=== PATIENT | female | born 1965 | race Caucasian/White ===

== ENCOUNTER 2017-04-08 06:35 | Day surgery (SDC) | payer BC, OTHER ==
[2017-04-08] MEDS ORDERED: Sodium Chloride 0.9% 10 ML Syringe FLUSH PRN (06:45)
[2017-04-08] MEDS ORDERED: Lactated Ringers 1,000 ML IV SCH (06:45)
[2017-04-08] MEDS ORDERED: fentaNYL 100 MCG/2 ML SDV IV ONE (07:50)
[2017-04-08] MEDS ORDERED: Propofol 200 MG/20 ML SDV IV ONE (07:50)
[2017-04-08] MEDS ORDERED: Ondansetron 4 MG/2 ML SDV IVPUSH ONE (07:50)
[2017-04-08] MEDS ORDERED: Midazolam 1 MG/ML 2 ML SDV IV ONE (07:50)
[2017-04-08] MEDS ORDERED: Simethicone Drops 40 MG/0.6 ML 30 ML Bottle ONE (08:06)
--- NOTE | 2017-04-08 08:23 | PCM.OPNOTE ---
- General Post-Op/Procedure Note Date of Surgery/Procedure: 04/08/17 Operative Procedure(s): c scope with bx Findings: rectal polyp Pre Op Diagnosis: screening Post-Op Diagnosis: rectal polyp Anesthesia Technique: MAC Primary Surgeon: Mukund Cohen Anesthesia Provider: Conner Andrew Pathology: rectal polyp Complications: None Condition: Good Free Text/Narrative:: see dictation
--- NOTE | 2017-04-08 11:44 | OR ---
DATE OF OPERATION: 04/08/2017 SURGEON: Mukund Cohen MD PROCEDURE PERFORMED: Colonoscopy with cold loop snare biopsy. PREOPERATIVE DIAGNOSIS: Need for screening colonoscope. POSTOPERATIVE DIAGNOSIS: Rectal polyp. INDICATIONS FOR PROCEDURE: This is a 51-year-old white female who presents for screening colonoscopy. She was offered and accepted same. DESCRIPTION OF OPERATION: After an excellent IV sedation was administered, digital rectal exam was performed. No marked abnormality was noted. Flexible colonoscope was inserted and advanced to the cecum without difficulty. The prep was excellent. The following findings were noted: Ascending colon, unremarkable. Transverse colon, unremarkable. Descending colon, unremarkable. Sigmoid, unremarkable. Distal rectum, small polypoid lesion, biopsied with cold loop and sent for permanent. The patient tolerated the procedure well and was taken to recovery room. /[id number] /ADRIELL
== END 2017-04-08 09:15 | disposition home or self-care (01) ==
LOC: FB.SDS 06:35
PROVIDERS: ATTEND Surgery
DX: Z12.11 Encounter for screening for malignant neoplasm of colon (principal); K62.1 Rectal polyp; Z79.899 Other long term (current) drug therapy; Z87.891 Personal history of nicotine dependence
CPT/HCPCS: 45380; 81025; 88305; A9270; J2250; J2405; J2704; J3010; J7120